=== PATIENT | female | born 1955 | race Caucasian/White ===

== ENCOUNTER → 2022-01-16 | Outpatient (CLI) | payer MEDICARE ==
[~2022-01-16] MED LIST: AMIO200T49 PO; ATOR40TA75 PO; CARD120T4 PO; ELIQ5TAB PO; FERR325T19 PO; FURO20TA2 PO; HYDR-3910 PO; METF500T13 PO; PANT40TA29 PO; POTA10CA32 PO; SERT50TA29 PO; VALS1TAB68 PO
== END ==
LOC: M LABSMTC 10:43
PROVIDERS: ATTEND Anesthesiology
DX: Z01.812 Encounter for preprocedural laboratory examination (principal); Z20.822 Contact with and (suspected) exposure to COVID-19